=== PATIENT | female | born 1990 | race Two or more races ===

== ENCOUNTER → 2018-08-21 | Outpatient (CLI) | payer OTHER | END | disposition home or self-care (01) | LOC: PRENATAL 10:41 | DX: O34.211 Maternal care for low transverse scar from previous cesarean delivery (principal) ==

== ENCOUNTER 2018-10-17 08:52 | Outpatient (CLI) | payer OTHER | END 2018-10-17 09:15 | disposition home or self-care (01) | LOC: PRENATAL 08:52 | DX: O35.3XX0 Maternal care for (suspected) damage to fetus from viral disease in mother, not applicable or unspecified (principal) ==

== ENCOUNTER 2019-02-19 10:25 | Inpatient (IN) | payer OTHER ==
[~2019-02-19] VITALS: Ht 157.5 cm; Wt 2.7 kg
[2019-02-23] MEDS ORDERED: PRENATABS RX T1 EACH PO (13:45)
== END 2019-03-02 13:26 | disposition home or self-care (01) | DRG 785 ==
LOC: O/R 02-27 07:40 → OB/GYN 02-27 08:30 → SURG-SUITE 02-27 13:08
PROVIDERS: ADMIT Specialist
PROC: 0UB70ZZ Excision of Bilateral Fallopian Tubes, Open Approach (ICD-10-PCS; 2019-02-27)
PROC: 4A1HXCZ Monitoring of Products of Conception, Cardiac Rate, External Approach (ICD-10-PCS; 2019-02-27)
PROC: 10D00Z1 Extraction of Products of Conception, Low, Open Approach (ICD-10-PCS; principal; 2019-02-27 08:30)
DX: O82 Encounter for cesarean delivery without indication (principal); O34.211 Maternal care for low transverse scar from previous cesarean delivery; Z3A.38 38 weeks gestation of pregnancy; Z37.0 Single live birth; Z30.2 Encounter for sterilization